=== PATIENT | female | born 1975 | race Hispanic/Latino ===

== ENCOUNTER 2021-08-15 14:07 | Emergency (ER) | payer BC ==
[2021-08-15] MEDS ORDERED: ONDANSETRON 4 MG/2 ML INJ IV ONE ×2 (14:27→21:13)
--- NOTE | 2021-08-15 14:34 | Emergency Department Report ---
HPI - General Chief Complaint: Dizziness Time Seen by Provider: 08/15/21 14:17 - HPI HPI: Room 4 Patient is a 46-year-old female present with a chief complaint of dizziness. Patient states she has felt dizzy with any movement of her head for the past 5 days. Patient admits to nausea and vomiting with the dizziness but denies shortness of breath. Patient went to an urgent care clinic was given a prescription for meclizine and given a referral to an ENT. Patient saw the ENT today Dr. Carr who told her that her ears and nose were clear that she needs further evaluation. The patient was subsequently sent to the ED for further work-up. Patient denies any preceding trauma. Patient denies history of fever. Patient states she has a history of anemia which has been attributed to her cycles. Patient states her LMP occurred 2 weeks ago usually last for 5 days going through approximately six pads per day for 3 days and three pads per day for 2 days. ED Past Medical Hx - Past Medical History Previous Medical History?: Yes Additional medical history: ANEMIA - Surgical History Hx Cholecystectomy: Yes Hx Appendectomy: Yes Additional Surgical History: Left ectopic, bilateral tubal ligation, left foot surgery - Family History Family history: no significant - Social History Smoking Status: Never Smoker Substance Use Type: Alcohol (Rarely), Marijuana - Medications Home Medications: Home Medications Medication Instructions Recorded Confirmed Last Taken Type Meclizine [Antivert] 25 mg PO TID PRN #30 tablet 08/15/21 Unknown Rx Ondansetron [Zofran ODT TAB] 8 mg PO Q8HR #20 tab.rapdis 08/15/21 Unknown Rx ED Review of Systems ROS: Stated complaint: DIZZINESS Other details as noted in HPI Constitutional: denies: fever Eyes: denies: eye pain ENT: denies: throat pain Respiratory: denies: shortness of breath Cardiovascular: denies: chest pain Endocrine: no symptoms reported Gastrointestinal: nausea, vomiting Genitourinary: denies: dysuria Musculoskeletal: denies: back pain Neurological: headache, vertigo Physical Exam - Physical Exam Vital Signs: Vital Signs 08/15/21 14:09 Temperature 98.6 F Pulse Rate 80 Respiratory 16 Rate Blood Pressure 131/73 [Left] O2 Sat by Pulse 97 Oximetry Physical Exam: GENERAL: The patient is well-developed well-nourished female lying on stretcher not appearing to be in acute distress. Patient lying in right lateral decubitus position as she states this is the most comfortable position for her HEENT: Normocephalic. Atraumatic. Extraocular motions are intact. Patient has moist mucous membranes. No nystagmus noted NECK: Supple. Trachea midline CHEST/LUNGS: Clear to auscultation. There is no respiratory distress noted. HEART/CARDIOVASCULAR: Regular. There is no tachycardia. There is no gallop rub or murmur. ABDOMEN: Abdomen is soft, nontender. Patient has normal bowel sounds. There is no abdominal distention. SKIN: There is no rash. There is no edema. There is no diaphoresis. NEURO: The patient is awake, alert, and oriented. The patient is cooperative. The patient has no focal neurologic deficits. The patient has normal speech. Cranial nerves II through XII grossly intact. GCS 15 MUSCULOSKELETAL: There is no evidence of acute injury. ED Course Vital Signs 08/15/21 14:09 Temperature 98.6 F Pulse Rate 80 Respiratory 16 Rate Blood Pressure 131/73 [Left] O2 Sat by Pulse 97 Oximetry ED Medical Decision Making - Lab Data Result diagrams: 08/15/21 14:43 08/15/21 14:43 Laboratory Tests 08/15/21 08/15/21 08/15/21 14:43 14:43 14:43 WBC 9.4 RBC 4.74 Hgb 11.3 Hct 36.8 MCV 78 L MCH 24 L MCHC 31 RDW 16.4 H Plt Count 465 H Lymph % (Auto) 21.3 [place] % (Auto) 6.6 Eos % (Auto) 0.2 Baso % (Auto) 0.9 Lymph # (Auto) 2.0 [place] # (Auto) 0.6 Eos # (Auto) 0.0 Baso # (Auto) 0.1 Seg Neutrophils % 71.0 H Seg Neutrophils # 6.7 PT 13.0 INR 0.88 Sodium 140 Potassium 3.8 Chloride 104.7 Carbon Dioxide 22 Anion Gap 17 BUN 11 Creatinine 0.6 Estimated GFR > 60 BUN/Creatinine Ratio 18 Glucose 114 H Calcium 9.9 Magnesium 2.00 Total Bilirubin 0.30 AST 17 ALT 15 Alkaline Phosphatase 85 Total Creatine Kinase 44 CK-MB (CK-2) < 1.0 CK-MB (CK-2) Rel Index 2.2 Troponin T < 0.010 Total Protein 7.3 Albumin 4.4 Albumin/Globulin Ratio 1.5 TSH Free T4 HCG, Qual Urine Color Urine Turbidity Urine pH Ur Specific [place] Urine Protein Urine Glucose (UA) Urine Ketones Urine Blood Urine Nitrite Urine Bilirubin Urine Urobilinogen Ur Leukocyte Esterase Urine WBC (Auto) Urine RBC (Auto) U Epithel Cells (Auto) Urine Mucus 08/15/21 08/15/21 08/15/21 14:43 14:43 Unknown WBC RBC Hgb Hct MCV MCH MCHC RDW Plt Count Lymph % (Auto) [place] % (Auto) Eos % (Auto) Baso % (Auto) Lymph # (Auto) [place] # (Auto) Eos # (Auto) Baso # (Auto) Seg Neutrophils % Seg Neutrophils # PT INR Sodium Potassium Chloride Carbon Dioxide Anion Gap BUN Creatinine Estimated GFR BUN/Creatinine Ratio Glucose Calcium Magnesium Total Bilirubin AST ALT Alkaline Phosphatase Total Creatine Kinase CK-MB (CK-2) CK-MB (CK-2) Rel Index Troponin T Total Protein Albumin Albumin/Globulin Ratio TSH 2.380 Free T4 1.02 HCG, Qual Negative Urine Color Yellow Urine Turbidity Clear Urine pH 8.0 H Ur Specific [place] 1.009 Urine Protein <15 mg/dl Urine Glucose (UA) Neg Urine Ketones Neg Urine Blood Neg Urine Nitrite Neg Urine Bilirubin Neg Urine Urobilinogen < 2.0 Ur Leukocyte Esterase Neg Urine WBC (Auto) 1.0 Urine RBC (Auto) 1.0 U Epithel Cells (Auto) 4.0 Urine Mucus Few - EKG Data -: EKG Interpreted by Me EKG shows normal: sinus rhythm Rate: normal - EKG Data When compared to previous EKG there are: previous EKG unavailable Interpretation: other (No ischemic changes seen) - Medical Decision Making Patient states she feels slightly improved. Patient was offered admission to the hospital but states she would prefer to go home and take the meclizine. Patient given strong warnings to return for any concern. Patient verbalized understanding - Differential Diagnosis Vertigo, dehydration, symptomatic anemia, intracranial mass Critical care attestation.: If time is entered above; I have spent that time in minutes in the direct care of this critically ill patient, excluding procedure time. ED Disposition Clinical Impression: Vertigo Disposition: HOME / SELF CARE / HOMELESS Is pt being admited?: No Does the pt Need Aspirin: No Condition: Stable Instructions: Dizziness, [id number] Additional Instructions: Return to the emergency department should you develop worsening symptoms, inability to tolerate food or liquids, high fever or any other concerns Prescriptions: Meclizine [Antivert] 25 mg PO TID PRN #30 tablet PRN Reason: Vertigo Ondansetron [Zofran ODT TAB] 8 mg PO Q8HR #20 tab.rapdis Referrals: KARMEN CHEN MD [Staff Physician] - YUSEF (Dr. Chen is a neurologist. Please fol low-up with him for further evaluation) LOULOU CANNON MD [Staff Physician] - 3-5 Days (Dr. Cannon is a primary physician. Please follow-up with him to be established as a patient) Time of Disposition: 20:31
[2021-08-15 15:19] LABS: Basophils # (Auto) 0.1 K/mm3 (0.0-0.1); Basophils % (Auto) 0.9 % (0.0-1.8); Eosinophils % (Auto) 0.2 % (0.0-4.3); Hematocrit 36.8 % (30.3-42.9); Hemoglobin 11.3 gm/dl (10.1-14.3); Lymphocytes % (Auto) 21.3 % (13.4-35.0); Mean Corpuscular HGB Conc 31 % (30-34); Mean Corpuscular Volume 78 fl (79-97); Monocytes # (Auto) 0.6 K/mm3 (0.0-0.8); Monocytes % (Auto) 6.6 % (0.0-7.3); Platelet Count 465 K/mm3 (140-440); Red Blood Count 4.74 M/mm3 (3.65-5.03); Red Cell Distribution Width 16.4 % (13.2-15.2)
[2021-08-15 15:21] LABS: Bilirubin,Urine NEG (Negative); Blood,Urine NEG (Negative); Color,Urine Yellow (Yellow); Mucus,Urine FEW /HPF; Protein,Urine <15 mg/dL mg/dL (Negative); Urobilinogen,Urine < 2.0 mg/dL (<2.0)
--- NOTE | 2021-08-15 15:21 | Cat Scan Report ---
CT head/brain wo con INDICATION / CLINICAL INFORMATION: 46 years Female; Dizziness. TECHNIQUE: Routine CT head without contrast. All CT scans at this location are performed using CT dos e reduction for ALARA by means of automated exposure control. COMPARISON: None. FINDINGS: BRAIN / INTRACRANIAL CONTENTS: The brain appears to demonstrate appropriate attenuation. The ventricu lar system is within normal limits in size and configuration. There is no clear CT evidence of acute intracranial hemorrhage or significant mass effect. ORBITS: No significant abnormality of visualized orbits. SINUSES / MASTOIDS: No significant abnormality in the visualized paranasal sinuses or mastoid air claudia ls. CRANIOCERVICAL JUNCTION: No significant abnormality. ADDITIONAL FINDINGS: None. IMPRESSION: 1. There is no CT evidence of acute intracranial process. Signer Name: Darian Warren MD Signed: 08/15/2021 3:16 PM Workstation Name: [id number]
[2021-08-15 15:30] LABS: INR 0.88 (0.87-1.13)
[2021-08-15 15:42] LABS: Alanine Aminotransferase 15 units/L (7-56); Albumin 4.4 g/dL (3.9-5); Blood Urea Nitrogen 11 mg/dL (7-17); Calcium 9.9 mg/dL (8.4-10.2); Hemolysis Index 15
[2021-08-15 15:43] LABS: BUN/Creatinine Ratio 18; Creatine Kinase MB < 1.0 ng/mL (0.0-4.0)
[2021-08-15 15:49] LABS: Free T4 (Free Thyroxine) 1.02 ng/dL (0.76-1.46)
[2021-08-15] MEDS ORDERED: MECLIZINE 25 MG TAB PO ONE (15:50)
[2021-08-15] MEDS ORDERED: ONDANSETRON 4 MG/2 ML INJ ONE ×2 (16:37→21:00)
[2021-08-15] MEDS ORDERED: SODIUM CHLORIDE 0.9% 1000 ML 1,000 ML IV ONE ×2 (19:05)
[2021-08-15 19:34] VITALS: BP 139/86
--- NOTE | 2021-08-16 17:31 | Electrocardiograph Report ---
[facility] Test Date: 2021-08-15 Test Time: 17:37:02 Pat Name: LINDSEY PITT Department: Room: Gender: F Wire Repairer: MARSHA : 1975 Requested By: GEOFF SETHI Order Number: [id number] Reading MD: James Villa Measurements Intervals [place] Rate: 74 P: 61 HI: 149 QRS: 37 QRSD: 83 T: 39 QT: 395 QTc: 439 Interpretive Statements Sinus rhythm No previous ECG available for comparison Electronically Signed On 08-16-2021 17:31:31 EST by James Villa
== END 2021-08-15 21:14 | disposition home or self-care (01) ==
LOC: ED 14:07
DX: R42 Dizziness and giddiness (principal); R11.2 Nausea with vomiting, unspecified; R79.1 Abnormal coagulation profile; Z90.49 Acquired absence of other specified parts of digestive tract; Z88.0 Allergy status to penicillin; Z88.8 Allergy status to other drugs, medicaments and biological substances; Z88.5 Allergy status to narcotic agent; Z79.899 Other long term (current) drug therapy
CPT/HCPCS: 36415; 70450; 80053; 81001; 82550; 82553; 83735; 84439; 84443; 84484; 84703; 85025; 85610; 93005; 96361; 96374; 96375; 99284; J2405